=== PATIENT | male | born 1955 | race Caucasian/White ===

== ENCOUNTER 2018-01-17 06:44 | Outpatient (CLI) | payer MEDICARE ==
[~2018-01-17] VITALS: Ht 182.9 cm; Wt 57.7 kg
[2018-01-17 07:14] LABS: BASOPHILS 0.8 % (0-2); EOSINOPHILS 3.2 % (0-7); HEMATOCRIT 45.3 % (42.0-54.0); HEMOGLOBIN 15.3 g/dL (13.5-17.5); IMMATURE GRANULOCYTES 0.3 % (0-5); LYMPHOCYTES 23.9 % (15-50); MCH 30.4 pg (26.0-34.0); MCHC 33.8 g/dL (31.0-37.0); MCV 90.1 fL (80.0-100.0); MEAN PLATELET VOLUME 8.7 fL (7.4-10.4); MONOCYTES 9.5 % (2-11); NEUTROPHILS 62.3 % (40-80); PLATELET COUNT 267 10x3/uL (130-400); RBC 5.03 10x6/uL (4.20-6.10); RDW 13.2 % (11.5-14.5); WBC 7.6 10x3/uL (4.8-10.8)
[2018-01-17 07:32] LABS: CALC OSMOLALITY 278 mosm/kg (275-300); CARBON DIOXIDE 30.7 mmol/L (21.0-32.0); CHLORIDE - SERUM 104 mmol/L (98-107); CREATININE - SERUM 0.9 mg/dL (0.6-1.3); GLUCOSE 103 mg/dL (74-106); POTASSIUM - SERUM 3.9 mmol/L (3.5-5.1); SODIUM 139 mmol/L (136-145); UREA NITROGEN 14 mg/dL (7-18); eGFR NON AFRICAN AMERICAN 90 mL/min (90-120)
[2018-01-17 07:46] LABS: APTT 27.7 SECONDS (22.8-39.4); INR 1.02 (0.85-1.17)
[2018-01-17 08:47] VITALS: Ht 182.9 cm; Wt 57.7 kg
[2018-01-17] MEDS ORDERED: PAXIL20 MG PO (08:51)
[2018-01-17] MEDS ORDERED: KLONOPIN0.5 MG PO (08:52)
[2018-02-22] MEDS ORDERED: KLONOPIN0.5 MG PO (11:27)
[2018-02-22] MEDS ORDERED: PAXIL20 MG PO (11:27)
== END 2018-01-17 15:15 | disposition home or self-care (01) ==
LOC: D.SP 06:44 → D.CT 09:00 → D.SP 09:00
PROVIDERS: Specialist
DX: C34.32 Malignant neoplasm of lower lobe, left bronchus or lung (principal); C43.9 Malignant melanoma of skin, unspecified; Z01.812 Encounter for preprocedural laboratory examination

== ENCOUNTER 2018-02-18 11:20 | Outpatient (CLI) | payer MEDICARE, MEDICAID ==
[~2018-02-18] VITALS: Ht 182.9 cm; Wt 60.0 kg
--- NOTE | ~2018-02-18 | HP ---
PATIENT: ART DILLON MEDICAL RECORD: [id number] ACCOUNT: [id number] LOCATION:[place] : 51 ADMISSION DATE: 02/18/18 HISTORY AND PHYSICAL EXAMINATION HISTORY OF PRESENT ILLNESS: This is a 62-year-old gentleman with a history of angina as part of evaluation. He was found to have also lung carcinoma. Given symptomatology and multiple risk factors, I felt that definitive anatomy was needed. He was brought to quality assurance lab technician for further delineation of anatomy. PAST MEDICAL HISTORY: Includes: 1. History of hypertension. 2. Obstructive pulmonary disease. 3. Angina. 4. Lung carcinoma. PHYSICAL EXAMINATION: GENERAL: Thin appearing, in no acute distress. HEENT: Normocephalic, atraumatic. NECK: No bruits noted. HEART: Regular. II/ systolic ejection murmur. LUNGS: Good air excursion with slightly prolonged expiratory phase. ABDOMEN: Soft, nontender. EXTREMITIES: Pulses 2+ with no edema. IMPRESSION: Progressive angina, preop pneumonectomy. We will plan for diagnostic angiography and intervention based on above. TRANSINT:[id number] Voice Confirmation ID: [id number] DOCUMENT ID: [id number] JESSICA DAWSON MD at 1254 CC: [id number] DICTATION DATE: 02/18/18 1300 METROLOGY MANAGER: 02/18/18 1317 DEP CLI 02/18/18 [facility] [address] [place] [address]
--- NOTE | ~2018-02-18 | HEMODYNAMI ---
PATIENT:ART DILLON MEDICAL RECORD: [id number] : 51 LOCATION:[place] ADMISSION DATE: 02/18/18 Generatedon:02/18/201813:28 Patient name: ART DILLON Patient #: [id number] SSN: : 1955 Date of study: 02/18/2018 Page: Of Hemodynamic Procedure Report Patient Data Patient Demographics Procedure consent was obtained First Name: ART Gender: Male Last Name: SANTANA : 1955 Middle Initial: E Age: 62 year(s) Patient #: [id number] Race: Unknown Additional ID: [id number] Contact details [facility] State: [place] City: [place] Zip code: [address] Past Medical History Allergies: No known allergies Admission Admission Data Admission Date: 02/18/2018 Admission Time: 11:20 Lab Results Lab Result Date: 02/18/2018 Lab Result Time: 0:00 Biochemistry Name Units Result Min Max BUN mg/dl 21 --(----)-* 7 18 Creatinine mg/dl 1.1 --(--*-)-- 0.6 1.3 CBC Name Units Result Min Max Hemoglobin g/dl 14.7 --(-*--)-- 13.5 17.5 Procedure Procedure Types Cath Procedure Diagnostic Procedure [facility] w/Coronaries Procedure Description Procedure Date Procedure Date: 02/18/2018 Procedure Start Time: 13:12 Procedure End Time: 13:21 Procedure Staff Name Function Lazaro Schneider MD Performing Physician Bianka Olivares RT Monitor Irena Carpio RT Mirianub Evelin Go RN Nurse Procedure Data Cath Procedure Fluoroscopy Diagnostic fluoroscopy Total fluoroscopy Time: 1 time: 1 min min Diagnostic fluoroscopy Total fluoroscopy dose: 184 dose: 184 mGy mGy Contrast Material Contrast Material Type Amount (ml) Isovue 300 40 Entry Location Entry Primary Successful Side Size Upsize Upsize Entry Closure Robertson ccessful Closure Location (Fr) 1 (Fr) 2 (Fr) Remarks Device Remarks Radial Right 6 Fr Mechanical artery Short Compression Estimated blood loss: 5 ml Diagnostic catheters Device Type Used For End Catheter Placement DIAGNOSTIC Cade 110cm 5 LV Angiography Fr catheter ([id number]) DIAGNOSTIC Cade 110cm 5 Left Coronary Fr catheter ([id number]) Angiography DIAGNOSTIC Cade 110cm 5 Right Coronary Fr catheter ([id number]) Angiography Procedure Complications No complications Procedure Medications Medication Administration Route Dosage Oxygen etCO2 Nasal cannula 2 l/min Lidocaine 2% added to field 20 Heparin Flush Bag added to field 2 bags (1000units/500ml NS) 0.9% NaCl I.V. 100 ml/hr Radial Cocktail I.A. 1 syringe (Verapomil 2mg/Nitro 400mcg/Heparin 1500units) Versed I.V. 1 mg Fentanyl I.V. 50 mcg Versed I.V. 1 mg Fentanyl I.V. 50 mcg Hemodynamics Rest Heart Rate: 59 (bpm) Pressure Samples Time Site Value (mmHg) Purpose Heart Use Rate(bpm) 13:15 LV 101/-6,6 EDP 74 13:15 AO 94/61(77) Pullback 81 Gradients Valve Time Site Site 2 Mean SEP/DFP Peak To Heart Use 1 (mmHg) (sec/min) Peak Rate (mmHg) (bpm) Aortic 13:15 LV AO 81 94/61(77) Snapshots Pre Cath Intra NCS Post Cath Vital Signs Time Heart Resp SPO2 etCO2 NIBP (mmHg) Rhythm Pain Sedation Rate (ipm) (%) (mmHg) Status Level (bpm) 13:08:49 63 20 98 30.8 126/77(100) NSR 0 (11) 10(A) , No pain 13:13:32 60 16 98 26.3 111/70(86) NSR 0 (11) 10(A) , No pain 13:18:13 65 16 98 26.3 104/58(78) NSR 0 (11) 10(A) , No pain 13:22:55 63 17 98 15.8 113/64(81) NSR 0 (11) 10(A) , No pain Medications Time Medication Route Dose Verified Delivered Reason Notes Effectiveness by by 13:08:05 Oxygen etCO2 2 l/min Lazaro Waters used for Nasal [facility] Demetris Go RN procedure cannula 13:12:22 Versed I.V. 1 mg Lazaro Waters for sedation St Demetris Go RN, MD 13:12:27 Fentanyl I.V. 50 mcg Lazaro Waters for sedation [facility] Demetris Go RN, MD 13:13:11 Lidocaine 2% added 20ml Lazaro Willis for local to vial [facility] anesthetic field MD HARO 13:13:16 Heparin Flush added 2 bags Lazaro Willis used for Bag to [facility] procedure (1000units/500ml field MD HARO NS) 13:13:25 0.9% NaCl I.V. 100 Lazaro Waters Per ml/hr [facility] Demetris kowalski MD 13:13:32 Radial Cocktail I.A. 1 Lazaro Willis for (Verapomil syringe [facility] vasodilation 2mg/Nitro MD HARO 400mcg/Heparin 1500units) 13:17:30 Versed I.V. 1 mg Lazaro Waters for sedation St Demetris Go RN, MD 13:17:33 Fentanyl I.V. 50 mcg Lazaro Waters for sedation [facility] Demetris Go RN, MD Procedure Log Time Note 12:44:58 Time tracking: Regular hours (M-F 7:00 - 5:00) 12:45:05 Plan of Care:Hemodynamics will remain stable., Cardiac rhythm will remain stable., Comfort level will be maintained., Respiratory function will remain adequate., Patient/ family verbilizes understanding of procedure., Procedure tolerated without complication., Recovers from procedure without complications.. 12:48:31 Patient allergic to No known allergies 12:48:58 Lab Result : BUN 21 mg/dl 12:48:58 Lab Result : Hemoglobin 14.7 g/dl 12:48:58 Lab Result : Creatinine 1.1 mg/dl 12:51:14 Bianka Counts RT(R) sent for patient. Start room use. 12:57:53 Patient received from Pre/Post Procedure Room to CCL 1 Alert and oriented. Tansferred to table in Supine position. 12:57:54 Warm blankets applied, and esteban hugger turned on for patient comfort. 12:57:54 Correct patient and procedure confirmed by team. 12:57:56 Signed procedure consent form obtained from patient. 12:57:56 ECG and BP/O2 sat monitors applied to patient. 12:57:57 Full Disclosure recording started 13:07:56 Vital chart was started 13:08:00 Rhythm: sinus rhythm 13:08:05 Oxygen 2 l/min etCO2 Nasal cannula was administered by Evelin Go RN; used for procedure; 13:08:12 H&P DICTATION #[id number] 13:08:12 H&P Date Dictated: 02/18/2018 Within 30 days and on chart., New H&P dictated by physician.. 13:08:13 Pre-procedure instructions explained to patient. 13:08:14 Pre-op teaching completed and patient verbalized understanding. 13:08:16 Family in patients room. 13:08:18 Patient NPO since Midnight. 13:08:20 Is the patient allergic to Iodine/contrast media? No. 13:08:27 Patient diabetic? No. 13:08:31 Previous problem with sedation/anesthesia? No ? 13:08:32 Snore? No 13:08:38 Sleep apnea? No 13:08:39 Deviated septum? No 13:08:40 Opens mouth fully? Yes 13:08:41 Sticks out tongue? Yes 13:08:45 Airway obstruction? Yes COPD 13:08:48 Dentures? No ? 13:08:57 Pre procedure: right dorsailis pedis pulse 2+ Normal; easily identifiable; not easily obliterated 13:09:01 Modified Sal's test Ulnar < 7 seconds 13:09:03 Patient pain scale 0/10 ?. 13:09:11 IV patent on arrival in left forearm with 0.9% NaCl at [facility]. 13:09:15 Lab results completed and on chart. 13:09:20 Right Radial & Right Groin area was prepped with chlora-prep and draped in sterile fashion 13:09:29 Alarms reviewed by R. N. 13:09:29 Sharps counted by scrub and verified by R.N. 13:10:11 Final Timeout: patient, procedure, and site verified with staff and physician. All members of the team are in agreement. 13:10:14 Right Radial site verified by team. 13:10:21 Physical assessment completed. ASA score P 2 - A patient with mild systemic disease as per Lazaro Schneider MD. 13:10:23 Sedation plan: IV Moderate Sedation Medication:Versed, Fentanyl 13:11:53 Use device set Radial Dx or PCI 13:11:54 ACIST Syringe (40894) opened to sterile field. 13:11:54 Medline Cath Pack ([id number]) opened to sterile field. 13:11:55 Bag Decanter () opened to sterile field. 13:11:57 DIAGNOSTIC WIRE .035 260cm J wire (366461) opened to sterile field. 13:11:57 ACIST Hand Control (19560) opened to sterile field. 13:11:57 ACIST Manifold (66748) opened to sterile field. 13:12:01 SHEATH 6Fr Prelude Radial ([id number]) opened to sterile field. 13:12:05 Zero performed for pressure channel P1 13:12:09 Zero performed for pressure channel P1 13:12:12 Zero performed for pressure channel P1 13:12:20 Baseline sample Acquired. 13:12:22 Procedure started. 13:12:22 Versed 1 mg I.V. was administered by Evelin Go RN; for sedation; 13:12:27 Fentanyl 50 mcg I.V. was administered by Evelin Go RN; for sedation; 13:12:31 Local anesthetic to right radial artery with Lidocaine 2% by Lazaro Schneider MD.INITIAL ACCESS ONLY 13:13:08 A 6 Fr Short sheath was inserted into the Right Radial artery 13:13:11 Lidocaine 2% 20ml vial added to field was administered by Lazaro Schneider MD; for local anesthetic; 13:13:16 Heparin Flush Bag (1000units/500ml NS) 2 bags added to field was administered by Lazaro Schneider MD; used for procedure; 13:13:25 0.9% NaCl 100 ml/hr I.V. was administered by Evelin Go RN; Per physician; 13:13:32 Radial Cocktail (Verapomil 2mg/Nitro 400mcg/Heparin 1500units) 1 syringe I.A. was administered by Lazaro Schneider MD; for vasodilation; 13:13:51 A DIAGNOSTIC Cade 110cm 5 Fr catheter ([id number]) was advanced over the wire and used for LV Angiography. 13:15:27 LV gram done using PETERS 13:15:28 LV hemodynamics recorded. 13:15:30 Injector settings: Ml/sec: 5, Volume: 15, 13:15:36 EF : 55 % 13:16:30 A DIAGNOSTIC Cade 110cm 5 Fr catheter ([id number]) was advanced over the wire and used for Left Coronary Angiography. 13:17:02 A DIAGNOSTIC Cade 110cm 5 Fr catheter (991934) was advanced over the wire and used for Right Coronary Angiography. 13:17:07 Catheter removed. 13:17:20 Sheath removed intact; hemostasis achieved with Mechanical Compression to the Right Radial artery. 13:17:22 Procedure ended.(Physican Out) 13:17:30 Versed 1 mg I.V. was administered by Evelin Go RN; for sedation; 13:17:33 Fentanyl 50 mcg I.V. was administered by Evelin Go RN; for sedation; 13:18:01 Fluoroscopy time 01.00 minutes. 13:18:15 Flurop Dose total: 184 13:18:15 Fluoroscopy dose: 184 mGy 13:18:39 Contrast amount:Isovue 300 40ml. 13:18:41 Sharps counted by scrub and verified by R.N. 13:18:44 Insertion/operative site no bleeding no hematoma. 13:18:55 Post right radial artery:stable, clean and dry 13:18:57 Post Procedure Pulses reassessed and unchanged 13:18:59 Post-procedure physical assessment completed. ASA score P 2 - A patient with mild systemic disease as per Lazaro Schneider MD. 13:19:02 Post procedure rhythm: unchanged. 13:19:07 Estimated blood loss: 5 ml 13:19:09 Post procedure instruction explained to patient.Patient verbalizes understanding. 13:19:09 Patient needs reinforcement of post procedure teaching. 13:19:30 Procedure Complication : No complications 13:19:33 See physician's report for complete and final results. 13:19:43 TR BAND Standard ([id number]) opened to sterile field. 13:20:37 Procedure and supply charges have been captured, reviewed, submitted and are correct. 13:20:44 Vital chart was stopped 13:20:46 Report given to Pre/Post Procedure Room. 13:20:48 Patient transfered to Pre/Post Procedure Room with Stretcher. 13:20:57 TR band inflated with 9cc of air. 13:20:59 Procedure ended. 13:20:59 Full Disclosure recording stopped 13:21:23 End room use (Document Last) Device Usage Item Name Manufacture Quantity Catalog Number Hospital Part Current M inimal Lot# / Charge Number Stock Stock Serial# Code ACIST Syringe Acist 1 11931 040470 703462 [id number] 2 0 (99318) [employer] Medline Cath Cardinal 1 [id number] 209514 60339 565646 5 [facility] ([id number]) Bag Decanter Microtek 1 2001S 605840 35064 956834 5 (2001S) Medical Inc. DIAGNOSTIC WIRE St Raji 1 776192 442916 819178 354382 3 0 .035 260cm J wire (909175) ACIST Hand Acist 1 74962 414681 404953 793958 5 Control (30390) [employer] Inc ACIST Manifold Acist 1 54434 881122 065814 187245 5 (60056) [employer] Systems Inc SHEATH 6Fr Merit 1 [id number] 950311 399691 051111 5 Prelude Radial Medical ([id number]) DIAGNOSTIC Terumo 1 63-9578 337307 403546 208633 5 Cade 110cm 5 Fr catheter (288052) TR BAND Terumo 1 [id number] 030793 894780 615419 4 0 Standard ([id number]) Signature Audit [place] Stage Time Signature Unsigned Intra-Procedure 02/18/2018 Bianka 1:28:52 PM Counts RT(R) Signatures Monitor : Bianka Signature : Counts RT Date : Time : [address] [address]
--- NOTE | ~2018-02-18 | OP ---
PATIENT NAME: ART DILLON MEDICAL RECORD: [id number] :51 LOCATION:[place] ADMISSION DATE: SURGEON: JESSICA DAWSON MD DATE OF OPERATION: 02/18/2018 PROCEDURE: Left heart catheterization, selective coronary angiography, right radial approach. CATHETERS: Radial sheath, [place] catheter. The procedure was well tolerated. The patient returned to hussein. Sheath removed. TR band was placed. FINDINGS: Left ventriculography in 30-degree PETERS view: Normal wall motion, normal systolic function. CORONARY ANATOMY: LEFT MAIN: Left main is free of disease. LAD: Free of disease in the diagonal system. CIRCUMFLEX: Free of disease in the marginal system, it is a left dominant system. RIGHT CORONARY ARTERY: Rudimentary, but free of disease. IMPRESSION: Normal LV systolic function, normal coronary anatomy. TRANSINT:[id number] Voice Confirmation ID: [id number] DOCUMENT ID: [id number] JESSICA DAWSON MD at 1254 CC: [id number] DICTATION DATE: 02/18/18 1322 PIN STICKER: 02/18/18 1433 DEP CLI 02/18/18 [id number] [place] [address]
[~2018-02-18 11:20] MED LIST: KLONOPIN0.5 MG PO; PAXIL20 MG PO
[2018-02-18 11:55] VITALS: BP 160/75; Ht 182.9 cm; Wt 60.0 kg
[2018-02-18 12:06] LABS: BASOPHILS 0.4 % (0-2); EOSINOPHILS 1.4 % (0-7); HEMATOCRIT 43.5 % (42.0-54.0); HEMOGLOBIN 14.7 g/dL (13.5-17.5); IMMATURE GRANULOCYTES 0.3 % (0-5); MCH 30.5 pg (26.0-34.0); MCHC 33.8 g/dL (31.0-37.0); MCV 90.2 fL (80.0-100.0); MEAN PLATELET VOLUME 9.2 fL (7.4-10.4); MONOCYTES 10.1 % (2-11); NEUTROPHILS 61.8 % (40-80); RBC 4.82 10x6/uL (4.20-6.10); WBC 7.1 10x3/uL (4.8-10.8)
[2018-02-18 12:15] LABS: ANION GAP 8.7 mmol/L (8-16); CALCIUM 8.6 mg/dL (8.5-10.1); CARBON DIOXIDE 29.2 mmol/L (21.0-32.0); CREATININE - SERUM 1.1 mg/dL (0.6-1.3); POTASSIUM - SERUM 3.9 mmol/L (3.5-5.1)
[2018-02-18 12:18] LABS: PLATELET COUNT 211 10x3/uL (130-400)
[2018-02-22] MEDS ORDERED: PAXIL20 MG PO (11:27)
[2018-02-22] MEDS ORDERED: KLONOPIN0.5 MG PO (11:27)
== END 2018-02-18 16:15 ==
LOC: D.CATH 11:20
PROVIDERS: Internal Medicine Interventional Cardiology
DX: I20.9 Angina pectoris, unspecified (principal); I10 Essential (primary) hypertension; J44.9 Chronic obstructive pulmonary disease, unspecified; C34.90 Malignant neoplasm of unspecified part of unspecified bronchus or lung; Z01.812 Encounter for preprocedural laboratory examination

== ENCOUNTER 2018-02-25 07:30 | Inpatient (IN) | payer MEDICARE ==
[2018-02-22 12:20] LABS: HEMATOCRIT 44.8 % (42.0-54.0); HEMOGLOBIN 15.2 g/dL (13.5-17.5); MCH 30.5 pg (26.0-34.0); MCHC 33.9 g/dL (31.0-37.0); MEAN PLATELET VOLUME 8.8 fL (7.4-10.4); RBC 4.98 10x6/uL (4.20-6.10); RDW 13.9 % (11.5-14.5); WBC 5.4 10x3/uL (4.8-10.8)
[2018-02-22 12:29] LABS: INR 1.05 (0.85-1.17); PROTIME 13.3 SECONDS (11.6-15.0)
[2018-02-22 12:30] LABS: APTT 27.8 SECONDS (22.8-39.4)
[2018-02-22 12:35] LABS: ALBUMIN 3.5 g/dL (3.4-5.0); ALKALINE PHOSPHATASE 89 U/L (46-116); ALT (SGPT) 14 U/L (10-68); BILIRUBIN - TOTAL 0.34 mg/dL (0.2-1.3); CALC OSMOLALITY 265 mosm/kg (275-300); CALCIUM 8.8 mg/dL (8.5-10.1); CARBON DIOXIDE 27.5 mmol/L (21.0-32.0); CHLORIDE - SERUM 103 mmol/L (98-107); CREATININE - SERUM 0.9 mg/dL (0.6-1.3); GLUCOSE 96 mg/dL (74-106); POTASSIUM - SERUM 4.2 mmol/L (3.5-5.1); PROTEIN - SERUM 7.1 g/dL (6.4-8.2); SODIUM 132 mmol/L (136-145); UREA NITROGEN 15 mg/dL (7-18); eGFR NON AFRICAN AMERICAN 90 mL/min (90-120)
[2018-02-22 12:58] LABS: APPEARANCE CLEAR (CLEAR); BACTERIA FEW /hpf (NONE SEEN); BILIRUBIN NEGATIVE (NEGATIVE); COLOR YELLOW (YELLOW); EPITHELIAL CELLS 0-5 /hpf (0-5); GLUCOSE NEGATIVE (NEGATIVE); KETONE NEGATIVE (NEGATIVE); NITRITE NEGATIVE (NEGATIVE); PROTEIN NEGATIVE (NEGATIVE); RED CELLS - URINE 0-5 /hpf (0-5); SPECIFIC GRAVITY 1.015 (1.005-1.020); UROBILINOGEN NORMAL (NORMAL); WHITE CELLS - URINE OCC /hpf (0-5)
[~2018-02-25] VITALS: Ht 182.9 cm; Wt 57.4 kg
--- NOTE | ~2018-02-25 | HP ---
PATIENT: ART DILLON MEDICAL RECORD: [id number] ACCOUNT: [id number] [facility] AD[facility] DATE: 03/01/18 PCP: LESLYE WEN MD HISTORY AND PHYSICAL EXAMINATION ART Hope (62yo, M) ID# [id number]. Date/Time02/08/2018 11:74BAIMP97/14/195Service Dept.NP_[facility] ClinicProviderEDQUANG WEN MDInsuranceMed Primary: [place]) Insurance # : [id number] Employer Name : RETIRED Prescription: CMX - Member is eligible. Prescription: [employer] - Member is eligible. Chief Complaint Lung cancer MALINA Vitals BP:130/80 sitting L arm 02/08/2018 11:56 am 132/76 sitting R arm 02/08/2018 11:56 amHR:64/REG 02/08/2018 11:57 amHt:6 ft 02/08/2018 11:54 amWt:131 lbs 02/08/2018 11:54 amBMI:17.8 02/08/2018 11:54 amAllergies Reviewed Allergies NKDAMedications Reviewed Medications clonazePAM 0.5 mg ypcqgw53/03/18 filledCaremarklevoFLOXacin 500 mg unwkvb82/27/18 filledCaremarkPARoxetine 20 mg lbuqdb22/03/18 filledCaremarkProblems Reviewed Problems Malignant tumor of lung Chronic obstructive lung disease Family History Reviewed Family History Mother- Seizure disorderSocial History Reviewed Social History Cardiology and General Family history of heart disease?: N Smoking Status: Current every day smoker Smoker (1 PPD) High Cholesterol: N High blood pressure: N Obese: N Diabetes: N Alcohol intake: Occasional Occupation: [employer] Marital status: Tobacco-years of use: 50 Surgical History Reviewed Surgical History 2017 HERNIA REPAIR Past Medical History Reviewed Past Medical History COPD: Y Cancer: Y - LUNG Shortness of Breath: Y Documents for Discussion HISTORY AND PHYSICAL [id number] ART DILLON Discussed the following documents: PFT, PLETHYSMOGRAPHY - 01/29/18 Notes - adequate for pulmonary resection PET, SKULL BASE TO MID-THIGH - 01/24/18 Notes - reviewed no suspicious mediastinal adenopathy SURGICAL PATHOLOGY STUDY - 01/17/18 Notes - CT GUIDED LUNG BX CT GUIDED NEEDLE BIOPSY (PROC) - 01/17/18 CT, CHEST, W/WO CONTRAST - 01/01/18 Notes - reviewed ONCOLOGY CONSULT NOTE - 02/04/18 Screening None recorded. 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 He reports chest pain on exertion and arm pain on exertion but reports no shortness of breath when walking, no shortness of breath when lying down, no palpitations, and no known heart murmur. He reports cough but reports no wheezing, no shortness of breath, and no coughing up blood. He reports growths/lesions (nnose probably basal cell) but reports no abnormal mole, no jaundice, and no rashes. He reports no dry ey es, no irritation, and no vision change. He reports no difficulty hearing and no ear pain. He reports no frequent nosebleeds and no nose/sinus problems. He reports no sore throat, no bleeding gums, no snoring, no dry mouth, no mouth ulcers, no oral abnorm a lities, and no teeth problems. He reports no jugular vein distension and no swollen glands. He reports no abdominal pain, no vomiting, normal appetite, no diarrhea, not vomiting blood, no nausea, and no constipation. He reports no incontinence, no difficu l ty urinating, no hematuria, and no increased frequency. He reports no muscle aches, no muscle weakness, no arthralgias/joint pain, no back pain, and no swelling in the extremities. He reports no loss of consciousness, no weakness, no numbness, no seizures , no dizziness, and no headaches. He reports no depression, no sleep disturbances, feeling safe in relationship, and no alcohol abuse. He reports no fatigue. He reports no swollen glands and no bruising. He reports no runny nose, no sinus pressure, no itch ing, no hives, and no frequent sneezing. ROS as noted in the HPI Physical Exam Patient is a 62-year-old male. Constitutional: General Appearance healthy-appearing and thin. Level of Distress NAD. Ambulation ambulating normally. Cardiovascular: Apical Imp ulse not displaced or no thrill. Heart Auscultation normal s1 and s2; no murmurs, rubs, or gallops; and RRR. Arterial Pulses no abdominal aorta bruits, femoral bruits, or popliteal bruits and 2+ bilateral, carotid 2+ bilateral, femoral 2+ bilateral, popli teal 2+ bilateral, and dorsalis pedis 2+ bilateral. Edema no edema or varicosities. Lungs: Repiratory Effort no dyspnea. Percussion no dullness or flatness and hyperresonance . Auscultation no wheezing, rhonchi, or rales / crackles and breathing sounds normal, CTA except as noted, and diminished air movement. Abdomen: Bowl Sounds normal. Inspection and Palpation no tenderness, guarding, HISTORY AND PHYSICAL [id number] CRAFT,ART masses, or rebound tenderness and soft and non-distended. Liver non-tender and no hepatomegaly. Spleen non-tender and no splenomegaly. Hernia none palpable. Musculoskeletal System: Gait And Stance normal gait and stance. Digits and Nails normal nails and no cyanosis. Neurologic: Cranial Nerves grossly intact. Reflexes DTRs 2+ bilaterally throughout. Sensation grossly intact. Lymph Nodes: Lymph Nodes no cervical LAD, supraclavicular LAD, axillary LAD, or inguinal LAD. Eyes: Lids and Conjunctivae no discharge or pallor and non-injected. Pupils PERRLA. Cornea grossly intact. EOM EOMI. Lens clear. Sclerae non-icteric. Neck: Neck no masses, enlarged lymph nodes, or carotid bruits and supple and trachea midline; jugulovenous distention. Thyroid no enlargement or nodules and non-tender. Skin: Inspection and Palpation no rash, lesions, ulcers, jaundice, or abnormal nevi. Assessment / Plan squamous cell carcinoma left upper lobe 1. Malignant tumor of lung C34.90: Malignant neoplasm of unspecified part of unspecified bronchus or lung 2. Chronic obstructive lung disease J44.9: Chronic obstructive pulmonary disease, unspecified CHRONIC OBSTRUCTIVE PULMONARY DISEASE (COPD): CARE INSTRUCTIONS LEARNING ABOUT COPD AND HOW TO PREVENT LUNG INFECTIONS Discussion Notes up with Dr. Viramontes or Kanika preoperative cardiology evaluation He appears to be a candidate for resection he is contemplating his options . I have discussed his disease process with him and his carvedilol in detail as well as the alternative methods of treatment we discussed left upper lobe resection including the expected bene fits and risks which include bleeding, infection, stroke, , and the imponderables. He understands all of the aboveAnd is agreeable to current plan.. LESLYE WEN MD at 1235 CC: [id number] DICTATION DATE: 02/08/[address] SUPERINTENDENT: JOHN 02/22/18 1507 DIS IN 03/12/18 [id number] [place] [address]
--- NOTE | ~2018-02-25 | OP ---
PATIENT NAME: ART DILLON MEDICAL RECORD: [id number] :51 LOCATION:[facility] D.CV07 ADMISSION DATE:03/01/18 SURGEON: LESLYE LAWS MD DATE OF OPERATION: 03/01/2018 SURGEON: Leslye Laws MD ANESTHESIA: General endotracheal, Dr. Avery. OPERATION PERFORMED: 1. Left thoracotomy with left upper lobe dissection and radical mediastinal node dissection. 2. Flexible fiberoptic bronchoscopy. PREOPERATIVE DIAGNOSIS: Carcinoma of the left upper lobe. POSTOPERATIVE DIAGNOSIS: Carcinoma of the left upper lobe. INDICATION FOR OPERATION: Carcinoma of the left upper lobe. FINDINGS OF THE OPERATION: Carcinoma of the left upper lobe. Lymph node dissection level 10, level 5, level 7 with the only nodes in the mediastinum. These were sent separately for pathology. ESTIMATED BLOOD LOSS: Less than 100 mL. DESCRIPTION OF PROCEDURE: After informed consent, adequate preoperative medication evaluation, the patient was brought to the operating room, placed on the table in the supine position. After induction of general endotracheal anesthesia and application of appropriate monitoring devices, the patient underwent flexible fiberoptic bronchoscopy and placement of a double lumen tube. There were no endobronchial lesions noted. The patient was turned in a left lateral decubitus position and the pressure points and neurologic structures protected. The left chest was prepped and draped in sterile field, utilizing Betadine scrub, alcohol, and Betadine solution. Betadine-impregnated drape was also used. A small posterolateral thoracotomy incision was made in the left chest. Dissection was carried down to the fascia. Hemostasis maintained with electrocautery. The fifth interspace was opened. The chest was examined. There were dense adhesions from the superior segment of the lower lobe to the chest wall as well as the left upper lobe adherent to the superior lateral wall and the lingula was attached to the anterior chest wall. All of these adhesions were lysed. Circumferential incision was made around the hilum. The fissure was almost complete dissection of the fissure and pulmonary artery were dissected free of surrounding structures. The posterior fissure was fully developed and opened. The dissection on the pulmonary artery was carried posteriorly and superiorly. The left upper lobe venous drainage was isolated and surrounded with a vessel loop. The branches to the upper lobe were individually divided with an Endo-BETINA vascular stapler. The anterior fissure was then completed with an Endo-BETINA heavy load. Attention was then turned toward the pulmonary vein. This was divided with an Endo-BETINA. The left upper lobe bronchus was then dissected and a TA 34.8 stapler was used to divide the left upper lobe bronchus. The lower lobe was infiltrated, inflated and inflated well. The bronchus was then amputated and sent to pathology as a permanent section. Level 10 nodes were dissected during the mobilization of the bronchus OPERATIVE REPORT [id number] ART DILLON and was sent as a separate section. There was a lymph node at level 5, which was removed and level 7, which was removed. There were no nodes in the level 6, 8, and 9 position. Chest was irrigated with copious amounts of sterile water and saline. Hemostasis was assured. Instrument count and sponge counts were correct. The chest tubes were then placed, one in the anterior axillary line superiorly and anteriorly. A separate tube was placed posteriorly and inferiorly. The chest was again irrigated. Instrument count and sponge count were correct times 2. Chest closed in layers utilizing #2 Vicryl on the pericostal sutures, #1 Vicryl on the muscle, 2-0 Vicryl on the subcutaneous tissue and skin approximated with 3-0 subcuticular Vicryl. Sterile dressings were applied. The patient tolerated the procedure well. Sterile dressings were applied. The patient turned in a supine position and the flexible fiberoptic bronchoscopy demonstrated good upper lobe closure and no lesions in the lower lobe bronchus. The patient tolerated the procedure well and was transferred to the CV ICU in satisfactory condition. TRANSINT:[id number] Voice Confirmation ID: [id number] DOCUMENT ID: [id number] LESLYE LAWS MD at 1234 CC: [id number] DICTATION DATE: 03/01/18 1158 PUBLIC POLICY MEDIATOR: 03/01/18 1211 DIS IN 03/12/18 [id number] [place] [id number]
[2018-03-01] VITALS (30 sets, daily range): BP systolic 95–143; BP diastolic 45–77; BMI 17.8
[2018-03-02] VITALS (23 sets, daily range): BP systolic 93–138; BP diastolic 48–71; BMI 17.9; BMI 18.0
[2018-03-02 06:05] LABS: HEMATOCRIT 38.6 % (42.0-54.0); HEMOGLOBIN 12.8 g/dL (13.5-17.5); MCHC 33.2 g/dL (31.0-37.0); MCV 90.4 fL (80.0-100.0); RBC 4.27 10x6/uL (4.20-6.10); WBC 9.1 10x3/uL (4.8-10.8)
[2018-03-02 06:27] LABS: ALBUMIN 2.5 g/dL (3.4-5.0); ALKALINE PHOSPHATASE 60 U/L (46-116); ALT (SGPT) 17 U/L (10-68); BILIRUBIN - TOTAL 0.65 mg/dL (0.2-1.3); CALC OSMOLALITY 272 mosm/kg (275-300); CALCIUM 7.4 mg/dL (8.5-10.1); CARBON DIOXIDE 24.6 mmol/L (21.0-32.0); CHLORIDE - SERUM 103 mmol/L (98-107); CREATININE - SERUM 0.8 mg/dL (0.6-1.3); GLUCOSE 127 mg/dL (74-106); POTASSIUM - SERUM 3.5 mmol/L (3.5-5.1); PROTEIN - SERUM 5.5 g/dL (6.4-8.2); SODIUM 136 mmol/L (136-145); UREA NITROGEN 9 mg/dL (7-18); eGFR NON AFRICAN AMERICAN > 90 mL/min (90-120)
[2018-03-03] VITALS (25 sets, daily range): BP systolic 108–158; BP diastolic 45–97
[2018-03-03 06:34] LABS: HEMATOCRIT 38.5 % (42.0-54.0); HEMOGLOBIN 13.1 g/dL (13.5-17.5); MCH 30.6 pg (26.0-34.0); MEAN PLATELET VOLUME 9.1 fL (7.4-10.4); RBC 4.28 10x6/uL (4.20-6.10); WBC 10.3 10x3/uL (4.8-10.8)
[2018-03-03 06:53] LABS: ALBUMIN 2.4 g/dL (3.4-5.0); ALKALINE PHOSPHATASE 64 U/L (46-116); ALT (SGPT) 21 U/L (10-68); BILIRUBIN - TOTAL 0.53 mg/dL (0.2-1.3); CALC OSMOLALITY 266 mosm/kg (275-300); CALCIUM 7.7 mg/dL (8.5-10.1); CHLORIDE - SERUM 100 mmol/L (98-107); CREATININE - SERUM 0.8 mg/dL (0.6-1.3); GLUCOSE 145 mg/dL (74-106); POTASSIUM - SERUM 3.8 mmol/L (3.5-5.1); PROTEIN - SERUM 5.7 g/dL (6.4-8.2); SODIUM 132 mmol/L (136-145); UREA NITROGEN 10 mg/dL (7-18); eGFR NON AFRICAN AMERICAN > 90 mL/min (90-120)
[2018-03-04] VITALS (18 sets, daily range): BP systolic 109–168; BP diastolic 44–89
[2018-03-04 06:06] LABS: HEMATOCRIT 40.9 % (42.0-54.0); HEMOGLOBIN 13.7 g/dL (13.5-17.5); MCHC 33.5 g/dL (31.0-37.0); MCV 89.7 fL (80.0-100.0); MEAN PLATELET VOLUME 9.1 fL (7.4-10.4); RBC 4.56 10x6/uL (4.20-6.10); RDW 13.8 % (11.5-14.5); WBC 10.2 10x3/uL (4.8-10.8)
[2018-03-04 06:38] LABS: ALBUMIN 2.2 g/dL (3.4-5.0); ALKALINE PHOSPHATASE 63 U/L (46-116); ALT (SGPT) 23 U/L (10-68); CALC OSMOLALITY 262 mosm/kg (275-300); CALCIUM 8.2 mg/dL (8.5-10.1); CARBON DIOXIDE 28.6 mmol/L (21.0-32.0); CHLORIDE - SERUM 100 mmol/L (98-107); CREATININE - SERUM 0.7 mg/dL (0.6-1.3); GLUCOSE 115 mg/dL (74-106); PROTEIN - SERUM 5.9 g/dL (6.4-8.2); SODIUM 131 mmol/L (136-145); UREA NITROGEN 10 mg/dL (7-18); eGFR NON AFRICAN AMERICAN > 90 mL/min (90-120)
[2018-03-04 06:39] LABS: POTASSIUM - SERUM 4.5 mmol/L (3.5-5.1)
[2018-03-05] VITALS (23 sets, daily range): BP systolic 103–150; BP diastolic 54–84
[2018-03-05 06:19] LABS: BASOPHILS 0.1 % (0-2); EOSINOPHILS 0 % (0-7); HEMATOCRIT 44.2 % (42.0-54.0); HEMOGLOBIN 15.5 g/dL (13.5-17.5); IMMATURE GRANULOCYTES 0.5 % (0-5); LYMPHOCYTES 5.9 % (15-50); MCH 30.9 pg (26.0-34.0); MCHC 35.1 g/dL (31.0-37.0); MEAN PLATELET VOLUME 9.2 fL (7.4-10.4); MONOCYTES 9.9 % (2-11); NEUTROPHILS 83.6 % (40-80); RBC 5.02 10x6/uL (4.20-6.10); RDW 13.6 % (11.5-14.5)
[2018-03-05 06:20] LABS: PLATELET COUNT 274 10x3/uL (130-400); WBC 12.8 10x3/uL (4.8-10.8)
[2018-03-05 06:32] LABS: CALC OSMOLALITY 273 mosm/kg (275-300); CALCIUM 8.6 mg/dL (8.5-10.1); CARBON DIOXIDE 34.2 mmol/L (21.0-32.0); CHLORIDE - SERUM 96 mmol/L (98-107); CREATININE - SERUM 0.8 mg/dL (0.6-1.3); GLUCOSE 149 mg/dL (74-106); MAGNESIUM - SERUM 2.2 mg/dL (1.8-2.4); PHOSPHOROUS 5.2 mg/dL (2.5-4.9); POTASSIUM - SERUM 4.5 mmol/L (3.5-5.1); SODIUM 134 mmol/L (136-145); eGFR NON AFRICAN AMERICAN > 90 mL/min (90-120)
[2018-03-05 06:33] LABS: UREA NITROGEN 20 mg/dL (7-18)
[2018-03-06] VITALS (22 sets, daily range): BP systolic 98–118; BP diastolic 58–78
[2018-03-06 06:30] LABS: BASOPHILS 0 % (0-2); EOSINOPHILS 0 % (0-7); HEMATOCRIT 40.2 % (42.0-54.0); HEMOGLOBIN 13.9 g/dL (13.5-17.5); IMMATURE GRANULOCYTES 0.2 % (0-5); MCH 30.6 pg (26.0-34.0); MCHC 34.6 g/dL (31.0-37.0); MCV 88.5 fL (80.0-100.0); MEAN PLATELET VOLUME 9.2 fL (7.4-10.4); NEUTROPHILS 75.8 % (40-80); PLATELET COUNT 284 10x3/uL (130-400); RBC 4.54 10x6/uL (4.20-6.10); RDW 13.7 % (11.5-14.5); WBC 10.4 10x3/uL (4.8-10.8)
[2018-03-06 06:53] LABS: ALBUMIN 2.4 g/dL (3.4-5.0); CALC OSMOLALITY 268 mosm/kg (275-300); CALCIUM 8.9 mg/dL (8.5-10.1); CARBON DIOXIDE 32.6 mmol/L (21.0-32.0); CHLORIDE - SERUM 96 mmol/L (98-107); CREATININE - SERUM 0.8 mg/dL (0.6-1.3); GLUCOSE 117 mg/dL (74-106); MAGNESIUM - SERUM 2.3 mg/dL (1.8-2.4); POTASSIUM - SERUM 3.9 mmol/L (3.5-5.1); PRO BNP 345 pg/mL (0-125); SODIUM 131 mmol/L (136-145); eGFR NON AFRICAN AMERICAN > 90 mL/min (90-120)
[2018-03-06 06:55] LABS: PHOSPHOROUS 3.6 mg/dL (2.5-4.9); UREA NITROGEN 27 mg/dL (7-18)
[2018-03-07] VITALS (25 sets, daily range): BP systolic 94–124; BP diastolic 50–84
[2018-03-07 06:37] LABS: BASOPHILS 0.1 % (0-2); EOSINOPHILS 0.4 % (0-7); HEMATOCRIT 39.3 % (42.0-54.0); HEMOGLOBIN 13.4 g/dL (13.5-17.5); IMMATURE GRANULOCYTES 0.2 % (0-5); LYMPHOCYTES 13.7 % (15-50); MCH 30.3 pg (26.0-34.0); MCHC 34.1 g/dL (31.0-37.0); MCV 88.9 fL (80.0-100.0); MEAN PLATELET VOLUME 9.1 fL (7.4-10.4); MONOCYTES 13.8 % (2-11); NEUTROPHILS 71.8 % (40-80); PLATELET COUNT 303 10x3/uL (130-400); RBC 4.42 10x6/uL (4.20-6.10); RDW 13.4 % (11.5-14.5)
[2018-03-07 06:42] LABS: CALC OSMOLALITY 268 mosm/kg (275-300); CALCIUM 8.7 mg/dL (8.5-10.1); CARBON DIOXIDE 30.3 mmol/L (21.0-32.0); CHLORIDE - SERUM 95 mmol/L (98-107); CREATININE - SERUM 0.8 mg/dL (0.6-1.3); GLUCOSE 103 mg/dL (74-106); POTASSIUM - SERUM 3.7 mmol/L (3.5-5.1); SODIUM 133 mmol/L (136-145); eGFR NON AFRICAN AMERICAN > 90 mL/min (90-120)
[2018-03-07 06:50] LABS: UREA NITROGEN 20 mg/dL (7-18)
[2018-03-08] VITALS (25 sets, daily range): BP systolic 101–164; BP diastolic 54–79
[2018-03-08 06:29] LABS: BASOPHILS 0.2 % (0-2); EOSINOPHILS 0.3 % (0-7); HEMATOCRIT 39.7 % (42.0-54.0); HEMOGLOBIN 13.4 g/dL (13.5-17.5); IMMATURE GRANULOCYTES 0.3 % (0-5); LYMPHOCYTES 20.6 % (15-50); MCHC 33.8 g/dL (31.0-37.0); MCV 88.8 fL (80.0-100.0); MEAN PLATELET VOLUME 8.8 fL (7.4-10.4); MONOCYTES 13.6 % (2-11); PLATELET COUNT 320 10x3/uL (130-400); RBC 4.47 10x6/uL (4.20-6.10); RDW 13.2 % (11.5-14.5); WBC 6.1 10x3/uL (4.8-10.8)
[2018-03-08 06:35] LABS: CALC OSMOLALITY 271 mosm/kg (275-300); CALCIUM 8.5 mg/dL (8.5-10.1); CARBON DIOXIDE 32.2 mmol/L (21.0-32.0); CHLORIDE - SERUM 98 mmol/L (98-107); CREATININE - SERUM 0.7 mg/dL (0.6-1.3); GLUCOSE 106 mg/dL (74-106); POTASSIUM - SERUM 3.9 mmol/L (3.5-5.1); SODIUM 135 mmol/L (136-145); UREA NITROGEN 18 mg/dL (7-18); eGFR NON AFRICAN AMERICAN > 90 mL/min (90-120)
[2018-03-09] VITALS (24 sets, daily range): BP systolic 93–120; BP diastolic 62–85
[2018-03-09 06:35] LABS: BASOPHILS 0.3 % (0-2); EOSINOPHILS 1.5 % (0-7); HEMATOCRIT 41.5 % (42.0-54.0); HEMOGLOBIN 14.3 g/dL (13.5-17.5); IMMATURE GRANULOCYTES 0.7 % (0-5); LYMPHOCYTES 24.3 % (15-50); MCH 30.4 pg (26.0-34.0); MCHC 34.5 g/dL (31.0-37.0); MCV 88.3 fL (80.0-100.0); MEAN PLATELET VOLUME 8.9 fL (7.4-10.4); MONOCYTES 14.4 % (2-11); NEUTROPHILS 58.8 % (40-80); WBC 7.4 10x3/uL (4.8-10.8)
[2018-03-09 06:36] LABS: PLATELET COUNT 388 10x3/uL (130-400)
[2018-03-09 06:43] LABS: CALC OSMOLALITY 267 mosm/kg (275-300); CALCIUM 8.4 mg/dL (8.5-10.1); CHLORIDE - SERUM 97 mmol/L (98-107); CREATININE - SERUM 0.7 mg/dL (0.6-1.3); GLUCOSE 97 mg/dL (74-106); MAGNESIUM - SERUM 2.1 mg/dL (1.8-2.4); PHOSPHOROUS 3.2 mg/dL (2.5-4.9); POTASSIUM - SERUM 3.8 mmol/L (3.5-5.1); SODIUM 133 mmol/L (136-145); UREA NITROGEN 18 mg/dL (7-18); eGFR NON AFRICAN AMERICAN > 90 mL/min (90-120)
[2018-03-10] VITALS (24 sets, daily range): BP systolic 93–133; BP diastolic 52–82
[2018-03-10 05:41] LABS: BASOPHILS 0.3 % (0-2); EOSINOPHILS 0.9 % (0-7); HEMATOCRIT 41.2 % (42.0-54.0); HEMOGLOBIN 14.1 g/dL (13.5-17.5); IMMATURE GRANULOCYTES 0.8 % (0-5); LYMPHOCYTES 21.2 % (15-50); MCH 30.1 pg (26.0-34.0); MCHC 34.2 g/dL (31.0-37.0); MEAN PLATELET VOLUME 8.6 fL (7.4-10.4); MONOCYTES 10.9 % (2-11); NEUTROPHILS 65.9 % (40-80); PLATELET COUNT 355 10x3/uL (130-400); RBC 4.68 10x6/uL (4.20-6.10); RDW 13.1 % (11.5-14.5); WBC 7.6 10x3/uL (4.8-10.8)
[2018-03-10 06:07] LABS: CALC OSMOLALITY 267 mosm/kg (275-300); CALCIUM 8.7 mg/dL (8.5-10.1); CARBON DIOXIDE 29.1 mmol/L (21.0-32.0); CHLORIDE - SERUM 97 mmol/L (98-107); CREATININE - SERUM 0.8 mg/dL (0.6-1.3); GLUCOSE 125 mg/dL (74-106); PHOSPHOROUS 3.4 mg/dL (2.5-4.9); POTASSIUM - SERUM 3.6 mmol/L (3.5-5.1); SODIUM 132 mmol/L (136-145); UREA NITROGEN 18 mg/dL (7-18); eGFR NON AFRICAN AMERICAN > 90 mL/min (90-120)
[2018-03-11] VITALS (24 sets, daily range): BP systolic 88–123; BP diastolic 48–78; Ht 182.9 cm; Wt 57.4 kg
[2018-03-12] VITALS (12 sets, daily range): BP systolic 96–123; BP diastolic 57–72
[2018-03-12] MEDS ORDERED: FLOMAX0.4 MG PO (12:14)
[2018-03-12] MEDS ORDERED: LOPRESSOR25 MG PO (12:16)
[2018-03-12] MEDS ORDERED: K-DUR20 MEQ PO (12:21)
[2018-03-12] MEDS ORDERED: PERCOCET 5-3251 TAB PO (12:22)
== END 2018-03-12 16:00 | disposition home or self-care (01) | DRG 163 ==
LOC: D.SDCHOLD 07:30 → D.CVICU 03-01 05:55 → D.SDCHOLD 03-01 07:30 → D.CVICU 03-01 10:51
PROVIDERS: Internal Medicine Cardiovascular Disease; Internal Medicine Pulmonary Disease
PROC: 0BTG0ZZ Resection of Left Upper Lung Lobe, Open Approach (ICD-10-PCS; principal; 2018-03-01 07:30)
PROC: 07T70ZZ Resection of Thorax Lymphatic, Open Approach (ICD-10-PCS; 2018-03-01 07:30)
PROC: 0BJ08ZZ Inspection of Tracheobronchial Tree, Via Natural or Artificial Opening Endoscopic (ICD-10-PCS; 2018-03-01 07:30)
DX: C34.12 Malignant neoplasm of upper lobe, left bronchus or lung (principal); J96.01 Acute respiratory failure with hypoxia; G93.41 Metabolic encephalopathy; J81.0 Acute pulmonary edema; J44.1 Chronic obstructive pulmonary disease with (acute) exacerbation; J93.9 Pneumothorax, unspecified; E46 Unspecified protein-calorie malnutrition; F17.200 Nicotine dependence, unspecified, uncomplicated; G40.909 Epilepsy, unspecified, not intractable, without status epilepticus; F41.8 Other specified anxiety disorders; N40.0 Benign prostatic hyperplasia without lower urinary tract symptoms; I48.91 Unspecified atrial fibrillation; R53.81 Other malaise

== ENCOUNTER → 2018-03-28 12:05 | Outpatient (CLI) | payer MEDICARE ==
[2018-03-11 15:03] VITALS: BMI 18.0
[~2018-03-28 12:05] MED LIST changes: +FLOMAX0.4 MG PO; +K-DUR20 MEQ PO; +LOPRESSOR25 MG PO; +PERCOCET 5-3251 TAB PO
== END | disposition home or self-care (01) ==
LOC: D.RAD 08:15
DX: J91.8 Pleural effusion in other conditions classified elsewhere (principal)

== ENCOUNTER → 2018-06-13 12:11 | Outpatient (CLI) | payer MEDICARE ==
[2018-03-11 15:03] VITALS: BMI 18.0
== END | disposition home or self-care (01) ==
LOC: D.RAD 12:11
DX: J91.8 Pleural effusion in other conditions classified elsewhere (principal)

== ENCOUNTER 2019-05-07 07:44 | Day surgery (SDC) | payer MEDICARE ==
[~2019-05-07] VITALS: Ht 182.9 cm; Wt 57.4 kg
[2019-05-07 08:08] LABS: HEMATOCRIT 46.7 % (42.0-54.0); HEMOGLOBIN 15.5 g/dL (13.5-17.5); MCHC 33.2 g/dL (31.0-37.0); MCV 90.5 fL (80.0-100.0); MEAN PLATELET VOLUME 8.9 fL (7.4-10.4); RBC 5.16 10x6/uL (4.20-6.10); RDW 12.8 % (11.5-14.5)
[2019-05-07 08:27] LABS: CALC OSMOLALITY 281 mosm/kg (275-300); CALCIUM 8.8 mg/dL (8.5-10.1); CARBON DIOXIDE 29.9 mmol/L (21.0-32.0); CHLORIDE - SERUM 104 mmol/L (98-107); CREATININE - SERUM 0.9 mg/dL (0.6-1.3); GLUCOSE 101 mg/dL (74-106); POTASSIUM - SERUM 4.1 mmol/L (3.5-5.1); SODIUM 141 mmol/L (136-145); UREA NITROGEN 16 mg/dL (7-18); eGFR NON AFRICAN AMERICAN 90 mL/min (90-120)
[2019-05-07 08:29] LABS: APTT 28.6 SECONDS (22.8-39.4); INR 1.03 (0.85-1.17)
[2019-05-07 08:57] VITALS: BP 126/76; Ht 182.9 cm; Wt 57.4 kg
[2019-05-07] MEDS ORDERED: HYDROCODON-ACE1 EA10 PO (11:34)
--- NOTE | 2019-05-07 11:40 | NUR ---
SUPRACLAVICULAR LUMPH NODE BX
[2019-05-07 11:45] LABS: APPEARANCE CLEAR (CLEAR); BACTERIA FEW /hpf (NEGATIVE); BILIRUBIN NEGATIVE (NEGATIVE); COLOR YELLOW (YELLOW); EPITHELIAL CELLS OCC /hpf (0-5); GLUCOSE NEGATIVE (NEGATIVE); KETONE NEGATIVE (NEGATIVE); NITRITE NEGATIVE (NEGATIVE); PROTEIN NEGATIVE (NEGATIVE); RED CELLS - URINE 0-5 /hpf (0-5); SPECIFIC GRAVITY 1.015 (1.005-1.020); UROBILINOGEN NORMAL (NORMAL); WHITE CELLS - URINE NSEEN /hpf (NEGATIVE)
--- NOTE | 2019-05-07 13:42 | NUR ---
1320-DISCHARGE CRITERIA MET. REMOVED IV WITH CATH INTACT,DISPOSED INTO SHARPS CONTAINER. COVERED SITE WITH BANDAIS. DRESSING TO LEFT NECK AREA CDI. REIVEWED POST OPERATIVE INSTRUCTIONS WITH PT AND DAUGHTER. VERBALIZED UNDERSTANDING. ESCORTED OUT VIA W/C WITH DAUGHTER AWAITING WITH TO DRIVE HOME.
--- NOTE | 2019-06-05 12:56 | OP ---
PATIENT NAME: ART DILLON MEDICAL RECORD: [id number] :51 LOCATION:D[facility] ADMISSION DATE: SURGEON: LESLYE LAWS MD DATE OF OPERATION: 05/07/2019 SURGEON: Leslye Laws MD ANESTHESIA: General, Dr. Concepcion. OPERATION PERFORMED: Right supraclavicular lymph node biopsy. PREOPERATIVE DIAGNOSIS: Carcinoma of the left upper lobe. POSTOPERATIVE DIAGNOSIS: Metastatic adenosquamous cell carcinoma, right subclavicular area. INDICATION FOR OPERATION: Enlarging right supraclavicular mass. FINDINGS OF THE OPERATION: Large right supraclavicular mass invading the muscular tear as well as the jugular vein and external jugular vein. ESTIMATED BLOOD LOSS: Less than 5 cc. Frozen section demonstrated adenosquamous cell carcinoma. DESCRIPTION OF PROCEDURE: After informed consent, adequate preoperative medication evaluation, the patient was brought to the operating room, placed on table in supine position. After induction of general endotracheal anesthesia and application of appropriate monitoring devices, the right neck was prepped and draped in sterile field. Utilizing Betadine scrub, alcohol, and Betadine solution. A Betadine-impregnated drape was also used. A transverse incision was made above the right clavicle. Dissection carried down the fascia. Hemostasis maintained with electrocautery. The mass was dissected free of surrounding structures, identifying the mass. The mass was invading the jugular vein as well as the external jugular vein and sternocleidomastoid. A biopsy was taken. Frozen section demonstrated adenosquamous cell carcinoma. Hemostasis was assured. The instrument counts and sponge counts were correct times 2. Wounds closed in layers utilizing 3-0 Vicryl on the sternocleidomastoid and 4-0 Vicryl on the platysma. The skin was approximated utilizing 5-0 subcuticular Monocryl. Sterile dressings were applied. The patient tolerated the procedure well and was transferred to the postanesthesia recovery in satisfactory condition. TRANSINT:[id number] Voice Confirmation ID: [id number] DOCUMENT ID: [id number] LESLYE LAWS MD at 1256 CC: [id number] DICTATION DATE: 05/07/19 1116 PC MAINTENANCE TECHNICIAN: 05/07/19 1142 [facility] 05/07/19 [facility] [address] [place] [address]
== END 2019-05-07 13:20 | disposition home or self-care (01) ==
LOC: D.OPS 07:44
PROVIDERS: ATTEND Internal Medicine Cardiovascular Disease
DX: C34.12 Malignant neoplasm of upper lobe, left bronchus or lung (principal); C77.0 Secondary and unspecified malignant neoplasm of lymph nodes of head, face and neck